=== PATIENT | female | born 1980 | race Caucasian/White ===

== ENCOUNTER 2018-05-07 12:32 | Outpatient (REF) | payer OTHER, SELFPAY ==
--- NOTE | 2018-05-07 11:40 | PAPFT_PTH ---
PATIENT: WESTLEY LUNDBERG LOC: [facility] U#:[id number] AGE/SX: 37/F ROOM: RE05/07/[address]: Mylene Solorzano : 1980 BED: DIS: 05/07/2018 SPEC #: [id number] RECD: 05/07/18 13:15 STATUS: ALEXEY REQ #: [id number] KJ: 05/07/18 11:[address]: Mylene Solorzano DEPT: [facility] Cytology RECD BY: Christal Brower Tissues: 1 - CX/ENDOCX FOR PAP SMEARS Procedures: PAP THIN PREP/[facility] Screening HPV DNA PROBE Comments: [id number]
== END 2018-05-07 12:52 ==
LOC: LBN 12:32
PROVIDERS: Visit Provider Obstetrics & Gynecology Gynecology
DX: Z12.4 Encounter for screening for malignant neoplasm of cervix (principal); Z11.51 Encounter for screening for human papillomavirus (HPV)
CPT/HCPCS: 88142; 87624

== ENCOUNTER 2019-09-19 13:55 | Outpatient (CLI) | payer OTHER, SELFPAY ==
[2019-09-19 15:18] LABS: HCG Quant, Pregnancy 13004 mIU/mL (1-3)
== END 2019-09-19 14:15 ==
PROVIDERS: PCP Naturopath; Visit Provider Obstetrics & Gynecology Gynecology
DX: O20.0 Threatened abortion (principal); O26.899 Other specified pregnancy related conditions, unspecified trimester; Z67.91 Unspecified blood type, Rh negative
CPT/HCPCS: 36415; 86850; 86900; 86901; 90384; 84702

== ENCOUNTER 2019-09-30 15:20 | Outpatient (CLI) | payer OTHER, SELFPAY ==
[2019-09-30 18:00] LABS: HCG Quant, Pregnancy 106 mIU/mL (1-3)
== END 2019-09-30 15:40 ==
PROVIDERS: PCP Naturopath; Visit Provider Obstetrics & Gynecology Gynecology
DX: O03.9 Complete or unspecified spontaneous abortion without complication (principal)
CPT/HCPCS: 36415; 84702

== ENCOUNTER 2020-06-02 02:48 | Outpatient (CLI) | payer OTHER, SELFPAY ==
[2020-06-02 11:23] LABS: Abs Immature Grans 0.09 10^3/uL (0.0-0.06); Absolute Basophil Count 0.03 10^3/uL (0.0-0.2); Absolute Eosinophil Count 0.15 10^3/uL (0.0-0.7); Absolute Monocyte Count 0.54 10^3/uL (0.1-0.8); Absolute Neutrophil Count 6.21 10^3/uL (1.2-6.7); Basophils % 0.3; Eosinophils % 1.6; HGB 13.8 g/dL (11.2-15.7); Lymphocytes % 25.5; MCHC 34.5 % (32.0-36.0); MCV 98.5 fL (80-95); MPV 9.6 fL (8.0-11.0); Monocytes % 5.7; Neutrophils % 65.9; Nucleated RBC 0 %; Platelet Count 244 10^3/uL (130-400); RBC 4.06 10^6/uL (3.93-5.22); RDW 11.6 % (11.7-14.6); RDW-SD 42.1 fL; WBC 9.42 10^3/uL (4.4-10.8)
[2020-06-02 12:11] LABS: TSH (W/Ref FT4) 0.76 uIU/mL (0.36-3.74)
[2020-06-02 13:06] LABS: *AMPHETAMINES SCREEN URINE Negative (Negative); *BARBITURATES SCREEN URINE Negative (Negative); *BENZODIAZEPINES SCREEN URINE Negative (Negative); Cannabinoids THC Negative (Negative); Cocaine Screen,Urine Negative (Negative); METHADONE URINE SCREEN Negative (Negative); OPIATES URINE SCREEN Negative (Negative)
[2020-06-02 13:11] LABS: Tricyclic Antidepressants Negative (Negative)
[2020-06-03 09:59] LABS: Hepatitis B Surface Ag Negative (Negative)
[2020-06-03 10:41] LABS: HIV-1/2 Ag & Ab Screen Negative (Negative)
[2020-06-03 10:58] LABS: Hepatitis C Ab w Rflx HCV PCR Negative (Negative)
[2020-06-04 10:31] LABS: Varicella IgG Antibody Positive (See Note)
[2020-06-04 10:38] LABS: Rubella IgG Ab (UVM) Positive (See Note)
[2020-06-04 14:29] LABS: Chlamydia Result Negative (Negative); GC Result Negative (Negative)
[2020-06-05 10:54] LABS: Syphilis Total Ab w/Reflex Nonreactive (Nonreactive)
[2020-06-10 12:00] LABS: Buprenorphine Negative; Norbuprenorphine Negative
== END 2020-06-02 03:08 ==
PROVIDERS: PCP Naturopath; Visit Provider Advanced Practice Midwife
DX: Z34.91 Encounter for supervision of normal pregnancy, unspecified, first trimester (principal); Z11.4 Encounter for screening for human immunodeficiency virus [HIV]; Z11.3 Encounter for screening for infections with a predominantly sexual mode of transmission; Z11.59 Encounter for screening for other viral diseases; Z01.84 Encounter for antibody response examination
CPT/HCPCS: 36415; 80307; 86787; 86803; 86850; 86900; 86901; 87340; 87389; 87491; 87591; 84443; 85025; 86762; 86780; 87086